=== PATIENT | female | born 1965 | race Hispanic/Latino ===

== ENCOUNTER 2020-11-29 18:04 | Emergency (ER) | payer BC ==
[~2020-11-29] VITALS: Ht 167.6 cm; Wt 81.6 kg
[2020-11-29 18:36] VITALS: BP 192/121
[2020-11-29] MEDS ORDERED: CATAPRES PO STA (19:42)
[2020-11-29] MEDS ORDERED: MOTRIN PO STA (19:42)
--- NOTE | 2020-11-29 19:48 | ER.PDOC ---
General Chief Complaint: General Complaint Stated Complaint: HIGH BP/TOOTHACHE TRAVEL OUT OF US: No Time seen by MD: 19:25 Source: patient, medical staff coordinator History of Present Illness Initial Comments This is a 55-year-old female whose primary reason for coming the emergency room is high blood pressure readings she has had at home recently. She states that last night it was as high as 200 systolic and tonight was as high as 190. She states that she is been bothered by a tooth ache and a right maxillary molar for about 1 week but has not been able to see a dentist. The toothache is now causing her a headache on the right side of her head. There is been no fever or chills and no vomiting. No focal neurological deficits. No changes in her vision. She denies chest pain or dyspnea. She takes atenolol, enalapril and chlorthalidone for her blood pressure. She lives in [place] and is visiting here. Allergies: Coded Allergies: No Known Allergies (Unverified , 11/29/20) Past Medical History Medical History: hypertension Surgical History: no surgical history Social History Smoking: non-smoker Alcohol Use: none Drug Use: none Review of Systems Constitutional: denies chills, denies fever EENTM: denies blurred vision, denies double vision Respiratory: denies cough, denies shortness of breath Cardiovascular: denies chest pain, denies syncope Gastrointestinal: denies abdominal pain, denies vomiting Genitourinary: denies dysuria, denies hematuria Musculoskeletal: denies back pain, denies joint pain Skin: denies lesions, denies rash Psychiatric/Neurological: denies anxiety, denies depressed; headache Hematologic/Lymphatic: denies easy bleeding, denies easy bruising Immunological/Allergic: no symptoms reported Physical Exam General Appearance: No Apparent Distress EENT: eyes nml inspection, other Neck: Supple, Normal Inspection Respiratory: lungs clear, normal breath sounds, no respiratory distress CVS: reg rate & rhythm, no murmur, pulses nml Gastrointestinal: Non Tender Back: Normal Inspection Extremities: Normal Range of Motion, Non-Tender, No Pedal Edema Neurologic/Psychiatric: set off press operator II-XII NML as Tested, No Motor/Sensory Deficits, Alert, Normal Mood/Affect, Oriented x 3 Skin: Normal Color, Warm/Dry Lymphatic: No Adenopathy Results/Orders Results/Orders Orders - FLETCHER GAMBLE MD Clonidine Hcl (Catapres) (11/29/20 19:42) Ibuprofen (Motrin) (11/29/20 19:42) Clonidine Hcl (Catapres) (11/29/20 20:02) Ibuprofen (Motrin) (11/29/20 20:03) Vital Signs Date Time Temp Pulse Resp B/P (MAP) Pulse Ox O2 Delivery O2 Flow Rate FiO2 11/29/20 23:40 98.1 84 18 127/86 (100) 98 Room Air 11/29/20 21:50 98.1 76 18 126/87 (100) 96 Room Air 11/29/20 20:06 88 186/109 11/29/20 18:36 98.1 72 18 11/29/20 18:36 98.1 72 18 97 11/29/20 18:36 98.1 72 18 192/121 (144) 97 Room Air Administered Medications Medications (Trade) Dose Ordered Sig/Ysabel Route PRN Reason Start Time Stop Time Status Last Admin Dose Admin Clonidine (Catapres) 0.1 mg STAT STAT PO 11/29/20 19:42 11/29/20 19:45 DC 11/29/20 20:06 0.1 MG Ibuprofen (Motrin) 800 mg STAT STAT PO 11/29/20 19:42 11/29/20 19:45 DC 11/29/20 20:06 800 MG Progress Progress 2320: The patient feels much improved and her headache is resolved and blood pressure normalized. She feels ready to go home. ER DEPART Departure Time of Disposition: 21:00 Disposition: HOME / SELF CARE / HOMELESS Impression: Primary Impression: Uncontrolled hypertension Additional Impressions: Infected dental caries Headache Condition: Stable Patient Instructions: Dental Pain, Hypertension Referrals: PCP,UNKNOWN (PCP) PRIMARY CARE PROVIDER Comments See a dentist as soon as possible. Duration or Time Spent with Pa: 10 Problem Qualifiers FLETCHER GAMBLE MD November 29, 2020 19:48
[2020-11-29] MEDS ORDERED: CATAPRES ONE (20:02)
[2020-11-29] MEDS ORDERED: MOTRIN ONE (20:03)
[2020-11-29 21:50] VITALS: BP 126/87
[2020-11-29 23:40] VITALS: BP 127/86
== END 2020-11-29 23:44 | disposition home or self-care (01) ==
LOC: ER 18:04
DX: I10 Essential (primary) hypertension (principal); K02.9 Dental caries, unspecified; K04.7 Periapical abscess without sinus; Z79.1 Long term (current) use of non-steroidal anti-inflammatories (NSAID); Z79.899 Other long term (current) drug therapy
CPT/HCPCS: 99283